=== PATIENT | female | born 1985 | race Caucasian/White ===

== ENCOUNTER → 2016-06-17 | Outpatient (CLI) | payer BC, SELFPAY | LOC: CT 07:31 | DX: R51 Headache (principal) | CPT/HCPCS: 70450 ==

== ENCOUNTER → 2016-06-22 | Outpatient (CLI) | payer BC, SELFPAY | LOC: EMI 14:16 | DX: R51 Headache (principal) | CPT/HCPCS: 70553; A9577; J7050 ==

== ENCOUNTER 2020-05-13 12:55 | Emergency (ER) | payer OTHER ==
[~2020-05-13 12:55] MED LIST: AUGMENTIN 875-1 EACH PO; PERCOCET 5-3251 EACH PO
[2020-05-13 15:12] LABS: HEMOGLOBIN 14.3 gm/dl (12.3-15.3); RED BLOOD COUNT 4.51 M/UL (4.00-5.10); WHITE BLOOD COUNT 5.8 K/UL (4.5-11.0)
[2020-05-13 15:37] LABS: BUN/CREATININE RATIO 10 (0-10)
[2020-05-13] MEDS ORDERED: ZYRTEC10 MG PO (16:42)
[2020-05-13] MEDS ORDERED: SUDAFED 60 MG T60 MG PO (16:42)
[2020-05-13] MEDS ORDERED: AUGMENTIN 875-1 EACH PO (16:42)
[2020-05-13] MEDS ORDERED: FLONASE 0.05% N16 GM (16:42)
== END 2020-05-13 16:55 | disposition home or self-care (01) ==
LOC: ER1 12:55
PROVIDERS: Physician Assistant Medical
DX: J06.9 Acute upper respiratory infection, unspecified (principal); N39.0 Urinary tract infection, site not specified; E87.6 Hypokalemia; F17.210 Nicotine dependence, cigarettes, uncomplicated; Z88.1 Allergy status to other antibiotic agents; Z88.2 Allergy status to sulfonamides; Z91.048 Other nonmedicinal substance allergy status; Z20.822 Contact with and (suspected) exposure to COVID-19
CPT/HCPCS: 0240U; 71045; 80053; 81001; 85025; 87086; 99284